=== PATIENT | male | born 1985 | race Native Hawaiian/Other Pacific Islander ===

== ENCOUNTER 2020-05-28 16:28 | Outpatient (REF) | payer OTHER, SELFPAY ==
--- NOTE | ~2020-05-28 | XR_ITS ---
EXAMINATION: XR CHEST CLINICAL INFORMATION: R07.9 - Chest pain, unspecified COMPARISON: None TECHNIQUE: 2 views of the chest were obtained. FINDINGS: The lungs are clear. There is no pneumothorax, pleural reaction, infiltrate, or effusion. The costophrenic sulci are clear. The heart is normal in size. The hilar and mediastinal contours are normal. No visible acute bony abnormality. XR/XR chest 2V IMPRESSION: Unremarkable examination.
== END 2020-05-28 16:29 | disposition home or self-care (01) ==
LOC: HO.HMGCX 16:28
PROVIDERS: PCP Internal Medicine; Visit Provider Nurse Practitioner Family
DX: R07.9 Chest pain, unspecified (principal)
CPT/HCPCS: 71046

== ENCOUNTER 2020-11-24 18:50 | Emergency (ER) | payer OTHER, SELFPAY ==
[2020-11-24 18:52] VITALS: BP 148/91; PULSE 81; RESP 17; TEMP 36.7; O2SAT 97; BMI 36.2
--- NOTE | 2020-11-24 20:46 | ED.BACK ---
HPI - Back Pain/Injury General Chief Complaint: Back Pain/Injury Stated Complaint: Back pain Time Seen by Provider: 11/24/20 20:25 Source: patient Mode of arrival: ambulatory History of Present Illness HPI Narrative: 35-year-old male with a past medical history of herniated disc and sciatica presenting to the ED complaining of acute on chronic sciatic pain radiating from right buttock down right lower extremity x1 week with associated right lower extremity tingling. Admits symptoms are similar to prior. Denies known injury/trauma or fall. Denies weakness, urinary incontinence/retention, numbness, fever, chills MD elicited complaint: back pain Related Data Previous Rx's Medication Instructions Recorded omeprazole 20 mg capsule,delayed 20 mg PO DAILY 7 Days #7 cap 05/28/20 release acetaminophen 500 mg tablet 500 mg PO Q6H PRN #20 tab 11/24/20 (Tylenol Extra Strength) cyclobenzaprine 5 mg tablet 5 mg PO Q8H PRN 5 Days #14 tab 11/24/20 lidocaine 5 % topical patch 1 patch TOPICAL DAILY PRN #30 ea 11/24/20 (Lidoderm) MDD remove after 12 hours naproxen 500 mg tablet 500 mg PO BID PRN 10 Days #20 tab 11/24/20 Allergies Allergy/AdvReac Type Severity Reaction Status Date / Time No Known Allergies Allergy Verified 11/24/20 18:52 Review of Systems Review of Systems: Constitutional: No Fever, No Chills ENT/Mouth: No Ear Pain, No Nasal Congestion, No sore throat Cardiovascular: No Chest Pain, No SOB Respiratory: No Cough Gastrointestinal: No Nausea, No Vomiting, No Abdominal pain Genitourinary: No Urinary Incontinence/retention Musculoskeletal: + joint pain, No Myalgias, No Joint Swelling Skin: No Skin Lesions, No rash Neuro: No Weakness, No Numbness, +Paresthesias Yes all other systems are reviewed and are negative Neurologic: Denies Sensory deficit (Neuro) [facility] Past Medical History Attestation statement: The following information was validated with the patient. Medical History (Updated 11/24/20 @ 20:49 by ROSARIO Flood) Disc herniation Sciatica Social History Social History Advance Directives: No Advance Directives Information Provided: No Physical Exam Vital Signs: Vital Signs: Last Vital Signs Temp 98.0 F 11/24/20 18:52 Pulse 81 11/24/20 18:52 Resp 17 11/24/20 18:52 BP 148/91 H 11/24/20 18:52 Pulse Ox 97 11/24/20 18:52 Body Mass Index 36.2 Const: General: cooperative and healthy appearing Orientation/consciousness: patient oriented x3 Limitations: no limitations HENMT: Head: Yes normal to inspection Ears: hearing grossly normal bilaterally General nose exam: Normal external nose present Face and sinus: Yes normal facial exam Eyes: General: appearance normal, both eyes and all related structures EOM: EOMs intact bilaterally Neck: Neck: Yes normal visual inspection Resp: Effort & Inspection: normal respiratory effort and no respiratory distress Cardio: Rate: regular rate Back/Spine/Pelvis: Other: No midline thoracic/lumbar spinous tenderness to palpation or step-off/deformity. + right-sided lumbar MSK/right-sided buttock tenderness to palpation. Skin: Rashes: no rashes Wounds: no wounds Neuro: Other: No saddle anesthesia, ambulating with steady gait, strength intact throughout General: patient oriented x3, gait normal, tone normal and moves all extremities Gait exam (Neuro): Normal gait present Motor exam (neuro): 5/5 motor strength present throughout Sensory Exam: No Sensory deficit (Neuro) Extrem: General: Yes normal to inspection MDM - Back Pain/Injury MDM Narrative Medical decision making narrative: 35-year-old male with a past medical history of herniated disc and sciatica presenting to the ED complaining of acute on chronic sciatic pain radiating from right buttock down right lower extremity x1 week with associated right lower extremity tingling. On exam VSS, NAD/well-appearing, physical exam as above, no red flag symptoms or midline spinous tenderness. Likely MSK pain and sciatica. Low concern for cauda equina/cord compression. Plan: Toradol/Lidoderm patch, PCP follow-up Discharge Plan Discharge Clinical Impression: Sciatica Qualifiers: Laterality: right Qualified Code(s): M54.31 - Sciatica, right side Patient Disposition: Home, Self-Care Instructions: Acute Low Back Pain (ED), Sciatica (ED) Additional Instructions: Your pain is likely musculoskeletal Flexeril is a muscle relaxer, take at night as it makes you drowsy, do not drive, drink alcohol, or operate machinery while taking it Naproxen as an anti-inflammatory / pain medication, take with food Lidoderm patches are numbing patches, apply to painful area In addition take Tylenol at home If symptoms persist or worsen, pain becomes unbearable, you developed urinary retention or incontinence, or weakness return to the ED Prescriptions: New acetaminophen [Tylenol Extra Strength] 500 mg tablet 500 mg PO Q6H PRN (Reason: pain or fever) Qty: 20 RF: 0 lidocaine [Lidoderm] 5 % adhesive patch,medicated 1 patch topical DAILY MDD remove after 12 hours PRN (Reason: pain) Qty: 30 RF: 0 naproxen 500 mg tablet 500 mg PO BID PRN (Reason: pain) 10 Days Qty: 20 RF: 0 cyclobenzaprine 5 mg tablet 5 mg PO Q8H PRN (Reason: pain (scale score 7-10)) 5 Days Qty: 14 RF: 0 No Action omeprazole 20 mg capsule,delayed release(DR/EC) 20 mg PO DAILY 7 Days Qty: 7 RF: 0 Referrals: Po,Perry Gonzalez MD [Primary Care Provider] - 5 days
[2020-11-24] MEDS: Ketorolac Tromethamine 15 MG/ML VIAL 30 MG IM (21:03)
[2020-11-24] MEDS: Lidocaine 4 % Patch ADH..PATCH 1 PATCH TRANSDERMA (21:04)
== END 2020-11-24 21:15 | disposition home or self-care (01) ==
PROVIDERS: Emergency Provider Internal Medicine; PCP Internal Medicine
DX: M54.31 Sciatica, right side (principal); Z79.899 Other long term (current) drug therapy
CPT/HCPCS: 96372; 99283; 99284; J1885

== ENCOUNTER 2021-04-03 13:52 | Outpatient (REF) | payer OTHER, SELFPAY ==
[2021-04-03 15:52] LABS: Binax Now Covid-19 Ag Positive (Negative)
[2021-04-03 15:53] LABS: Binax Internal Control QC Valid
== END 2021-04-03 13:53 | disposition home or self-care (01) ==
LOC: HO.LAB 13:52
PROVIDERS: Visit Provider Internal Medicine
DX: Z20.822 Contact with and (suspected) exposure to COVID-19 (principal)
CPT/HCPCS: 36415; C9803

== ENCOUNTER 2022-07-01 12:52 | Outpatient (REF) | payer OTHER, SELFPAY ==
--- NOTE | ~2022-07-01 | XR_ITS ---
EXAMINATION: XR LUMBOSACRAL SPINE WITH OBLIQUES CLINICAL INFORMATION: Sciatica right side. COMPARISON: None available. TECHNIQUE: AP, both oblique, and lateral views of the lumbar spine. Lateral view of the lumbosacral junction. FINDINGS: There is normal lumbar lordosis. The vertebral heights, alignment and disc heights are normal. No visible acute fracture, dislocation or subluxation seen. SI joints are symmetrical and normal. The paravertebral soft tissues are normal. XR/XR lumbar spine 4V min IMPRESSION: Unremarkable lumbar spine exam.
== END 2022-07-01 12:53 | disposition home or self-care (01) ==
LOC: HO.XRAY 12:52
PROVIDERS: PCP Internal Medicine; Visit Provider Physician Assistant
DX: M54.31 Sciatica, right side (principal)
CPT/HCPCS: 72110

== ENCOUNTER 2022-08-19 12:00 | Outpatient (RCR) | payer OTHER, SELFPAY ==
--- NOTE | 2022-07-28 10:55 | MHC.PT.EP ---
[facility] [place] Office [place] Office [place] Office [address] Ariadna Zavala [address] [phone] F: [phone] F: [phone] F: [phone] F: [phone] Physical Therapy Plan of Care Date of Evaluation: Date of Surgery: N/A Diagnosis: Unspecified thoracic, thoracolumbar and lumbosacral intervertebral disc disorder Assessment: Pt is a pleasant and motivated 37yo M who presents to PT with low back pain with intermittent radiating symptoms into RLE. Pt presents to PT with current impairments in pain, decreased lumbar ROM, posterior chain tightness, soft tissue restrictions, decreased core stabilization, decreased hip/glute strength, and impaired gait. He is limited functionally by prolonged sitting, bending, and transitional movements. He is an excellent candidate for skilled PT in order to address current impairments to facilitate return to PLOF. He is recommended to be seen 2x/week for 4 weeks and will be reassessed at that time. Frequency and Duration: The patient will be seen 2x/week for 4 weeks Short Term Goals: Pt will be I with HEP to promote self management of symptoms Pt will demonstrate improvements in postural awareness throughout the day Food Handler Goals: Pt will demonstrate full ROM all planes of lumbar spine to assist with ADLs Pt will tolerate prolonged sitting > 45 min with improved posture without pain or radicular symptoms Pt will demonstrate improvements in function as evidenced by statistically significant improvement in Modified Oswestry Low Back Pain Disability Questionnaire Treatment Plan: Modalities to reduce pain, spasms and effusion. Manual therapy to restore motion and function. Therapeutic exercise to improve strength and flexibility. Neuromuscular re-education for posture and balance. Therapeutic activities to return to functional activities of daily living. Electronically signed by: Naima Palomo, PT, DPT Please sign and return to therapist. Thank you for your referral.
--- NOTE | 2022-09-01 14:19 | MHC.PT.DC ---
[facility] [place] Office [place] Office [place] Office [address] Ariadna Zavala [address] [phone] F: [phone] F: [phone] F: [phone] F: [phone] Physical Therapy Discharge Report Diagnosis: Unspecified thoracic, thoracolumbar and lumbosacral intervertebral disc disorder Date of Surgery: N/A Date of Evaluation: 07/27/22 Date of Discharge: 09/01/22 Treatments to Date: 7 Cancellations to Date: 1 No Shows to Date: 2 Discharge Status: Visit Non-compliance Discharge Summary: Pt was seen for PT from 07/27/22-08/19/22. Pt has had 2 no show appointments since SOC including a no show for his last scheduled appointment. Pt is being D/C from skilled PT per [facility] attendance policy and visit non compliance. Pt current level of function unknown at this time. Electronically signed by: Naima Palomo, PT, DPT Please sign and return to therapist. Thank you for your referral.
== END 2022-09-01 14:19 | disposition home or self-care (01) ==
LOC: HO.PT 12:00
PROVIDERS: PCP Internal Medicine; Visit Provider Physician Assistant
DX: M51.9 Unspecified thoracic, thoracolumbar and lumbosacral intervertebral disc disorder (principal); M54.31 Sciatica, right side
CPT/HCPCS: 97110; 97112; 97140; 97162

== ENCOUNTER 2023-04-06 13:02 | Outpatient (AMB) | payer OTHER, SELFPAY ==
--- NOTE | 2023-04-06 13:15 | MHC.PC.OV ---
Vital Signs 04/06/23 13:16 04/06/23 13:36 Height 5 ft 5 in Weight 226 lb BMI 37.6 BP 140/86 H 132/70 Blood Pressure Location Lt brachial Lt brachial Position Sitting Sitting Pulse 79 Pulse Source Pulse Oximeter Pulse Oximetry (%) 99 Oxygen Delivery Method Room Air Intake Visit Reasons: Physical exam Allergies No Known Allergies Allergy (Verified 07/13/22 15:05) Medication List - Last Reconciled 04/06/23 by Perry Rodriguez MD blood pressure monitor (Blood Pressure Kit) As directed hydrochlorothiazide 25 mg PO DAILY multivitamin 1 tab PO DAILY Tobacco use date assessed: 04/06/23 Dental Screening Dental Screen Date: 04/06/23 Did you have a dental visit in the last 12 months?: No Did you have a dental problem in the last 6 months where you did not have access to dental care?: No HPI Physical exam HPI Details 37-year-old obese male smoker with hypertension coming in for physical exam last seen in 2020. Review of the chart June 2022 had back pain sent for physical therapy and was given prednisone. dizzy 2 weeks ago had covid 19 infection last year 02/2023- 3 weeks before abd pain takes cold drink- diarrhea am and evening. [facility] Medical History (Updated 04/06/23 @ 14:01 by Perry Rodriguez MD) Migraine Tobacco abuse Hypertension Obesity Disc herniation Sciatica Surgical History No pertinent past surgical history Social History (Updated 04/06/23 @ 13:40 by Perry Rodriguez MD) Housing: Apartment Alcohol intake: current Comment: 3 x a year- 2 glasses Patient Tobacco Use Status: Former Tobacco user Tobacco use type: Cigarette Years Smoked: 2020 e-Cigarette/Vaping Use: Never Used Second Hand Smoke Exposure: No service: No Current occupational status: employed Cognitive needs: No Hearing needs: No Vision needs: Yes (glasses) Questionnaire PHQ-9 Over the last 2 weeks, how often have you been bothered by any of the following problems? 1. Little interest or pleasure in doing things: not at all 2. Feeling down, depressed, or hopeless: several days 3. Trouble falling or staying asleep, or sleeping too much: several days 4. Feeling tired or having little energy: not at all 5. Poor appetite or overeating: several days 6. Feeling bad about yourself - or that you are a failure or have let yourself or your family down: not at all 7. Trouble concentrating on things, such as reading the newspaper or watching television: not at all 8. Moving or speaking so slowly that other people could have noticed. Or the opposite - being so fidgety or restless that you have been moving around a lot more than usual: not at all 9. Thoughts that you would be better off or of hurting yourself in some way: not at all Total score: 3 Depression Screening Interpretation: Positive Depression Screening Done: Yes Source: Developed by Drs. Tani Bernal, Ruby Grace, Ha Rahman and colleagues, with an educational vahid from [employer]. Thrive Questionnaire Date Thrive assessed: 04/06/23 I am a: Patient What is your living situation today?: I have a steady place to live Within the past 12 months, did the food you bought not last and you didn't have the money to get more?: Never true Within the past 12 months, did you worry whether your food would run out before you got money to buy more?: Never true Do you have trouble paying for medicines?: No Do you have trouble getting transportation to medical appointments?: No Do you have trouble paying your heating and electricity bill?: No Do you have trouble taking care of your child, family member or friend?: No Do you have trouble with day-to-day activities such as bathing, preparing meals, shopping, managing finances, etc.?: No Are you currently unemployed and looking for a job?: No Are you interested in more education?: No AUDIT C Alcohol Use Questionnaire (AUDIT-C) 1. How often do you have a drink containing alcohol?: Monthly or less 2. How many drinks containing alcohol do you have on a typical day when you are drinking?: 1 or 2 3. How often do you have six or more drinks on one occasion?: Never Total Score: 1 LALITHA-7 AMB Questionnaire LALITHA-7 Date LALITHA - 7 assessed: 04/06/23 Feeling nervous, anxious, or on edge: 0 = Not at all Not being able to stop or control worryin = Several days Worrying too much about different things: 0 = Not at all Trouble relaxin = Not at all Being so restless that it is hard to sit still: 1 = Several days Becoming easily annoyed or irritable: 1 = Several days Feeling afraid as if something awful might happen: 0 = Not at all Total LALITHA-7 score (0-4 normal; 5-9 mild; 10-14 moderate; 15-21 severe): 3 Source: Developed by Drs. Tani Bernal, Ruby Grace, Ha Rahman and colleagues, with an educational vahid from [employer]. Review of Systems Const Denies poor appetite and Denies weakness Eyes Denies no additional complaints ENT Reports Normal hearing present, Denies dizziness, Denies nasal congestion, Denies tinnitus and Denies sore throat Card Denies chest pain, Denies syncope, Denies rapid heart rate and Denies dyspnea Resp Denies cough and Denies dyspnea GI Denies change in stool character, Reports constipation, Denies diarrhea, Denies nausea and Denies vomiting Denies dysuria and Denies urinary frequency Neuro Reports Normal hearing present, Denies confusion, Denies dizziness, Denies syncope and Denies weakness Psych Denies confusion Physical exam (Primary Care) Vital Signs: Last Vital Signs Pulse 79 04/06/23 13:16 BP 132/70 04/06/23 13:36 Pulse Ox 99 04/06/23 13:16 Oxygen Delivery Method Room Air 04/06/23 13:16 BMI result Body Mass Index 37.6 Tobacco/Smoking Status: Tobacco use Status Tobacco use date assessed 04/06/23 04/06/23 13:21 Patient Tobacco Use Status Former Tobacco user 04/06/23 13:40 Tobacco use type Cigarette 04/06/23 13:40 e-Cigarette/Vaping Use Never Used 04/06/23 13:40 PHQ-9: PHQ-9 Score PHQ-9: Total score 3 04/06/23 13:28 Depression Screening Interpretation: Positive Thrive Assessment: Date of Thrive Assessment Date Thrive assessed 04/06/23 04/06/23 13:21 Const General: No confusion Orientation/consciousness: No confusion HENMT Head: Yes normocephalic Ears: external ears normal and TM's normal bilaterally Face and sinus: Yes normal facial exam Mouth: moist mucous membranes Throat: Yes tonsils normal Eyes Conjunctivae: conjunctivae normal Pupils: Equal, round and reactive pupils present and Pupil accommodation reflex normal Direct Ophthalmoscopy: normal light reflex Neck Neck: No lymphadenopathy Thyroid: Thyroid normal Chest Chest palpation & inspection: normal inspection of the chest Resp Effort & Inspection: normal respiratory effort and no audible wheezes Auscultation: clear to auscultation bilaterally Cardio Rate: regular rate Rhythm: regular rhythm Peripheral pulses: radial pulses present and dorsalis pedis present GI Other: visual negative Inspection: Yes normal to inspection Palpation (GI): no masses Auscultation: normal bowel sounds and normoactive bowel sounds Male General Exam: Yes normal external exam Skin General skin exam: no rashes or lesions noted Rashes: no rashes Neuro General: No confusion Cranial nerves: Yes Equal, round and reactive pupils present and Yes Normal hearing present Cognition (Neuro): normal cognition Gait exam (Neuro): Normal gait present Motor exam (neuro): 5/5 motor strength present throughout Deep tendon reflexes (DTR's): Right brachioradialis reflex intensity grade: 2+, Left brachioradialis reflex intensity grade: 2+, Right patellar reflex intensity grade: 2+ and Left patellar reflex intensity grade: 2+ Extrem General: Yes normal to inspection and No edema Immunizations Boostrix Tdap 2.5 Lf unit-8 mcg-5 Lf/0.5 mL intramuscular syringe Performing Provider: Perry Rodriguez MD Performing Location: [facility] Administered by: JACQUELYN Gomez on 04/06/23 14:08 Dose Route Admin Location Dispensed Lot Number Expiration Date NDC Food Editor 0.5 mL IM Left Deltoid 0.5 mL [id number] 07/22/25 [id number] [employer] VIS Given Date VIS Provided VIS Publication Date 04/06/23 Single Vaccine 20 Eligibility Eligibility Date Funding Source Not [facility] Eligible 04/06/23 Private Assessment and Plan Assessment & Plan (1) Annual physical exam: Code(s): Z00.00 - Encounter for general adult medical examination without abnormal findings (2) Hypertension: Code(s): I10 - Essential (primary) hypertension Qualifiers: Hypertension type: primary hypertension Qualified Code(s): I10 - Essential (primary) hypertension Plan: Continue with blood pressure medication. Decrease salt intake and exercise presently on hydrochlorothiazide 25 mg once a day (3) Obesity: Code(s): E66.9 - Obesity, unspecified Qualifiers: Body mass index: BMI 34.0-34.9 Obesity classification: adult class 1 (BMI 30 - 34.9) Obesity type: due to excess calories Serious obesity comorbidity presence: without serious comorbidity Qualified Code(s): E66.09 - Other obesity due to excess calories; Z68.34 - Body mass index [BMI] 34.0-34.9, adult Plan: Diet and exercise (4) Mass of anus: Code(s): K62.89 - Other specified diseases of anus and rectum Plan: most oftern hemorrhoids but if persist call and referral to GI. avoid getting constipated Orders: Orders Complete Blood Count Auto Diff Today I10 - Essential (primary) hypertension Comprehensive Met. Panel Today I10 - Essential (primary) hypertension Thyroid Stimulating Hormone Today I10 - Essential (primary) hypertension TDaP Immunization Today Z23 - Encounter for immunization Free T4 (Free Thyroxine) Today I10 - Essential (primary) hypertension Vitamin B12 and Folate Today I10 - Essential (primary) hypertension Lipid Panel Today E78.00 - Pure hypercholesterolemia, unspecified, I10 - Essential (primary) hypertension Medications: New ciclopirox 8% (Ciclodan) 1 appl topical BEDTIME 4 weeks 6.6 mL 1RF B35.1 - Tinea unguium blood pressure monitor (Blood Pressure Kit) As directed 1 ea 0RF I10 - Essential (primary) hypertension Refilled hydrochlorothiazide 25 mg PO DAILY 90 tabs 3RF I10 - Essential (primary) hypertension Coding Level of Care Code Est Pt Prev Care [id number]) Diagnoses Annual physical exam Z00.00 Primary hypertension I10 Hypertension type: primary hypertension Class 1 obesity due to excess calories without serious comorbidity with body mass index (BMI) of 34.0 to 34.9 in adult E66.09; Z68.34 Body mass index: BMI 34.0-34.9 Obesity classification: adult class 1 (BMI 30 - 34.9) Obesity type: due to excess calories Serious obesity comorbidity presence: without serious comorbidity Mass of anus K62.89
[2023-04-06 13:16] VITALS: BP 140/86; PULSE 79; O2SAT 99; BMI 37.6
[2023-04-06 13:36] VITALS: BP 132/70
== END 2023-04-06 14:15 | disposition home or self-care (01) ==
PROVIDERS: PCP Internal Medicine; Visit Provider Internal Medicine
DX: Z00.00 Encounter for general adult medical examination without abnormal findings (principal); I10 Essential (primary) hypertension; E66.09 Other obesity due to excess calories; Z23 Encounter for immunization; Z68.34 Body mass index [BMI] 34.0-34.9, adult; K62.89 Other specified diseases of anus and rectum
CPT/HCPCS: 90471; 90715; 99395

== ENCOUNTER 2024-04-10 12:39 | Outpatient (AMB) | payer OTHER, SELFPAY ==
[2024-04-10 12:40] VITALS: BP 148/96; PULSE 95; O2SAT 95; BMI 34.3
--- NOTE | 2024-04-10 12:40 | A.OFFPC_ITS ---
Vital Signs 04/10/24 12:40 04/10/24 12:50 Height 5 ft 5 in Weight 206 lb 4 oz BMI 34.3 BP 148/96 H 142/80 H Blood Pressure Location Lt brachial Lt brachial Position Sitting Sitting Pulse 95 Pulse Source Pulse Oximeter Pulse Oximetry (%) 95 Oxygen Delivery Method Room Air Intake Visit Reasons: Annual exam Allergies No Known Allergies Allergy (Verified 04/10/24 12:43) Medication List - Last Reconciled 04/10/24 by Perry Rodriguez MD blood pressure monitor (Blood Pressure Kit) As directed hydrochlorothiazide 25 mg PO DAILY Tobacco use date assessed: 04/10/24 Dental Screening Dental Screen Date: 04/10/24 Did you have a dental visit in the last 12 months?: No Did you have a dental problem in the last 6 months where you did not have access to dental care?: No Was dental information given to patient?: Patient has dentist HPI Annual exam HPI Details The patient is a 38-year-old male presenting with blood pressure management issues. The patient reports inconsistent monitoring of blood pressure due to a lack of a home blood pressure monitor. He recalled previous episodes of elevated blood pressure resulting in epistaxis a few years ago, which necessitated medical attention. The patient has not adhered to his prescribed medication, hydrochlorothiazide, for the past 4 weeks. He expressed a need for a machine to monitor his blood pressure at home and acknowledged that he experie nces anxiety, which may contribute to elevated readings in a clinical setting. The patient noted improvement in his condition when at home but lacks documented evidence of this due to inadequate monitoring. He was given guidance regarding the importance of managing blood pressure to prevent heart enlargement, myocardial infarction, and cerebrovascular accidents. - Discussion on the importance of loweri ng salt intake to manage hypertension. - Prescription for a home blood pressure monitor to allow regular monitoring outside the clinical environment. - Advice regarding regular physical acti vity and healthy diet to manage weight and overall cardiovascular health. - Counseling on recreational cannabis us e and its potential cardiopulmonary risks. - Documentation of recent flu vaccinatio n received at work. - Employs relaxation techniques with occ asional use of marijuana for anxiety management. - Drinks alcohol two to three times rhianna hly, preferring wine or wine coolers. - Lives alone and manages his meals inde pendently, reporting fluctuation in dietary habits leading to nausea if meal patterns are irregular. - Cardiovascular: Reports intermittent e pisodes of dizziness dependent on dietary intake. - Respiratory: Denies shortness of breat h; rare nocturnal dyspnea reported previously. - Gastrointestinal: Reports nausea in th e mornings if skipping breakfast. - Neurological: Occasionally feels tired after certain meals but denies persistent fatigue. - EENT: Reports vision issues with broke n glasses; maintains familiarity with corrective lens use. - Reinstate and monitor usage of hydroch lorothiazide for management of hypertension. - Enroll in home monitoring of blood pre ssure with a prescribed device; evaluate readings frequently. - Provide patient education on the signi ficance of diet and lifestyle in blood pressure control. - Plan for follow-up in 3 months, with d etailed logs of home-monitored blood pressure. PFSH Medical History Migraine Tobacco abuse Hypertension Obesity Disc herniation Sciatica Surgical History No pertinent past surgical history Social History (Updated 04/10/24 @ 12:54 by Perry Rodriguez MD) Housing: Apartment Alcohol intake: current Comment: 3 x a month 2 glasses Patient Tobacco Use Status: Former Tobacco user Tobacco use type: Cigarette Years Smoked: 2020 e-Cigarette/Vaping Use: Never Used Second Hand Smoke Exposure: No service: No Current occupational status: employed Cognitive needs: No Hearing needs: No Vision needs: Yes (glasses) Questionnaire PHQ-9 Over the last 2 weeks, how often have you been bothered by any of the following problems? 1. Little interest or pleasure in doing things: several days 2. Feeling down, depressed, or hopeless: several days 3. Trouble falling or staying asleep, or sleeping too much: several days 4. Feeling tired or having little energy: several days 5. Poor appetite or overeating: not at all 6. Feeling bad about yourself - or that you are a failure or have let yourself or your family down: not at all 7. Trouble concentrating on things, such as reading the newspaper or watching television: several days 8. Moving or speaking so slowly that other people could have noticed. Or the opposite - being so fidgety or restless that you have been moving around a lot more than usual: not at all 9. Thoughts that you would be better off or of hurting yourself in some way: not at all Total score: 5 Depression Screening Interpretation: Positive Depression Screening Done: Yes 40159 - PHQ-9 Billing: Yes Source: Developed by Drs. Tani Bernal, Ruby Grace, Ha Rahman and colleagues, with an educational vahid from [email or web address] Thrive Questionnaire Date Thrive assessed: 04/10/24 I am a: Patient What is your living situation today?: I have a steady place to live Within the past 12 months, did the food you bought not last and you didn't have the money to get more?: Never true Within the past 12 months, did you worry whether your food would run out before you got money to buy more?: Never true Do you have trouble paying for medicines?: No Do you have trouble getting transportation to medical appointments?: No Do you have trouble paying your heating and electricity bill?: No Do you have trouble taking care of your child, family member or friend?: No Do you have trouble with day-to-day activities such as bathing, preparing meals, shopping, managing finances, etc.?: No Are you currently unemployed and looking for a job?: No Are you interested in more education?: No THRIVE Score: 0 AUDIT C Alcohol Use Questionnaire (AUDIT-C) 1. How often do you have a drink containing alcohol?: Monthly or less 2. How many drinks containing alcohol do you have on a typical day when you are drinking?: 1 or 2 3. How often do you have six or more drinks on one occasion?: Never Total Score: 1 Score Reviewed/Action Taken: Yes LALITHA-7 AMB Questionnaire LALITHA-7 Date LALITHA - 7 assessed: 04/10/24 Feeling nervous, anxious, or on edge: 0 = Not at all Not being able to stop or control worryin = Not at all Worrying too much about different things: 1 = Several days Trouble relaxin = Several days Being so restless that it is hard to sit still: 0 = Not at all Becoming easily annoyed or irritable: 1 = Several days Feeling afraid as if something awful might happen: 0 = Not at all Total LALITHA-7 score (0-4 normal; 5-9 mild; 10-14 moderate; 15-21 severe): 3 Source: Developed by Drs. Tani Bernal, Ruby Grace, Ha Rahman and colleagues, with an educational vahid from [email or web address] LALITHA-7 Assessment Billing LALITHA-7 Assessment Tool: LALITHA-7 Assessment 80427 Review of Systems Const Denies poor appetite and Denies weakness Eyes Denies no additional complaints ENT Reports Normal hearing present, Denies dizziness, Denies nasal congestion, Denies tinnitus and Denies sore throat Card Denies chest pain, Denies syncope, Denies rapid heart rate and Denies dyspnea Resp Denies cough and Denies dyspnea GI Denies change in stool character, Reports constipation, Denies diarrhea, Denies nausea and Denies vomiting Denies dysuria and Denies urinary frequency Neuro Reports Normal hearing present, Denies confusion, Denies dizziness, Denies syncope and Denies weakness Psych Denies confusion Physical exam (Primary Care) Vital Signs: Last Vital Signs Pulse 95 04/10/24 12:40 BP 148/96 H 04/10/24 12:40 Pulse Ox 95 04/10/24 12:40 Oxygen Delivery Method Room Air 04/10/24 12:40 BMI result Body Mass Index 34.3 Tobacco/Smoking Status: Tobacco use Status Tobacco use date assessed 04/06/23 04/06/23 13:21 Patient Tobacco Use Status Former Tobacco user 04/06/23 13:40 Tobacco use type Cigarette 04/06/23 13:40 e-Cigarette/Vaping Use Never Used 04/06/23 13:40 Depression Screening Interpretation: Positive Thrive Assessment: Date of Thrive Assessment Date Thrive assessed 04/06/23 04/06/23 13:21 Const General: No confusion Orientation/consciousness: No confusion HENMT Head: Yes normocephalic Ears: external ears normal and TM's normal bilaterally Face and sinus: Yes normal facial exam Mouth: moist mucous membranes Throat: Yes tonsils normal Eyes Conjunctivae: conjunctivae normal Pupils: Equal, round and reactive pupils present and Pupil accommodation reflex normal Direct Ophthalmoscopy: normal light reflex Neck Neck: No lymphadenopathy Thyroid: Thyroid normal Chest Chest palpation & inspection: normal inspection of the chest Resp Effort & Inspection: normal respiratory effort and no audible wheezes Auscultation: clear to auscultation bilaterally, no crackles, no wheezes and lung sounds not diminished Cardio Rate: regular rate Rhythm: regular rhythm Peripheral pulses: radial pulses present and dorsalis pedis present GI Other: visual negative rectal Palpation (GI): no masses Auscultation: normal bowel sounds and normoactive bowel sounds Rectal Exam - Male: Yes deferred Male General Exam: Yes normal external exam Skin General skin exam: no rashes or lesions noted Rashes: no rashes Neuro General: No confusion Cranial nerves: Yes Equal, round and reactive pupils present and Yes Normal hearing present Cognition (Neuro): normal cognition Gait exam (Neuro): Normal gait present Motor exam (neuro): 5/5 motor strength present throughout Deep tendon reflexes (DTR's): Right brachioradialis reflex intensity grade: 2+, Left brachioradialis reflex intensity grade: 2+, Right patellar reflex intensity grade: 2+ and Left patellar reflex intensity grade: 2+ Extrem General: No edema Coding Level of Care Code Est Pt Prev Care 18-39y(88954) Diagnoses Annual physical exam Z00.00 Class 1 obesity due to excess calories without serious comorbidity with body mass index (BMI) of 34.0 to 34.9 in adult E66.09; Z68.34 Body mass index: BMI 34.0-34.9 Obesity classification: adult class 1 (BMI 30 - 34.9) Obesity type: due to excess calories Serious obesity comorbidity presence: without serious comorbidity Primary hypertension I10 Hypertension type: primary hypertension Hypersomnia G47.10 Additional Codes PHQ-9 - 11331 - PHQ-9 Billing: Yes ([id number]) LALITHA-7 Assessment Billing - LALITHA-7 Assessment Tool: LALITHA-7 Assessment [id number] ([id number]) Assessment & Plan Assessment & Plan (1) Annual physical exam: Code(s): Z00.00 - Encounter for general adult medical examination without abnormal findings Category: Medical (2) Obesity: Code(s): E66.9 - Obesity, unspecified Category: Medical Qualifiers: Body mass index: BMI 34.0-34.9 Obesity classification: adult class 1 (BMI 30 - 34.9) Obesity type: due to excess calories Serious obesity c omorbidity presence: without serious comorbidity Qualified Code(s): E66.09 - Other obesity due to excess calories; Z68.34 - Body mass index [BMI] 34.0-34.9, adult (3) Hypertension: Code(s): I10 - Essential (primary) hypertension Category: Medical Qualifiers: Hypertension type: primary hypertension Qualified Code(s): I10 - Essential (primary) hypertension (4) Hypersomnia: Code(s): G47.10 - Hypersomnia, unspecified Category: Medical Plan - Reinstate and monitor usage of hydrochlorothiazide for management of hypertension. - Enroll in home monitoring of blood pressure with a prescribed device; evaluate readings frequently. - Provide patient education on the significance of diet and lifestyle in blood pressure control. - Plan for follow-up in 3 months, with detailed logs of home-monitored blood pressure. During our discussion, I emphasized the importance of proper blood pressure management. The patient was informed about the need to consistently take prescribed antihypertensive medication and to use a home blood pressure monitor to track readings regularly. I highlighted the potential health risks associated with uncontrolled hypertension, such as hypertrophy of the heart, myocardial infarction, and cerebrovascular accidents. Additionally, I discussed the implications of recreational cannabis use concerning cardiovascular health, advising a preference for oral forms if consumption continues. We talked about the benefits of leading a healthy lifestyle, including salt reduction and weight management, for overall cardiovascular risk reduction. The patient agreed to a follow-up on progress in 3 months after adhering to the management plan, including monitoring at home, diet adjustments, and reinitiation of medication. - Restart and adhere to your hydrochlorothiazide medication as prescribed. - Obtain and use a home blood pressure monitor regularly; log your readings. - Reduce salt intake in your diet to help control blood pressure. - Avoid smoking and limit recreational cannabis use; consider non-smoking alternatives. - Engage in regular physical activity and maintain a healthy diet. - Schedule a follow-up appointment in 3 months to review blood pressure logs and medication effectiveness. - Seek immediate medical care if you experience any symptoms like severe dizziness, chest pain, or sudden shortness of breath. Orders: Orders RT home sleep study Today G47.10 - Hypersomnia, unspecified Comprehensive Met. Panel Today G47.10 - Hypersomnia, unspecified Free T4 (Free Thyroxine) Today G47.10 - Hypersomnia, unspecified Lipid Panel Today E78.00 - Pure hypercholesterolemia, unspecified, G47.10 - Hypersomnia, unspecified Vitamin B12 and Folate Today G47.10 - Hypersomnia, unspecified Complete Blood Count Auto Diff Today G47.10 - Hypersomnia, unspecified Thyroid Stimulating Hormone Today G47.10 - Hypersomnia, unspecified Hemoglobin A1c Today G47.10 - Hypersomnia, unspecified Medications: Refilled hydrochlorothiazide 25 mg PO DAILY 90 tabs 3RF I10 - Essential (primary) hypertension blood pressure monitor (Blood Pressure Kit) As directed 1 ea 0RF I10 - Essential (primary) hypertension
[2024-04-10 12:50] VITALS: BP 142/80
== END 2024-04-10 13:15 | disposition home or self-care (01) ==
PROVIDERS: PCP Internal Medicine; Visit Provider Internal Medicine
DX: Z00.00 Encounter for general adult medical examination without abnormal findings (principal); E66.09 Other obesity due to excess calories; Z68.34 Body mass index [BMI] 34.0-34.9, adult; I10 Essential (primary) hypertension; G47.10 Hypersomnia, unspecified

== ENCOUNTER → 2024-04-10 12:39 | Outpatient (BNVA) | payer OTHER, SELFPAY | PROVIDERS: PCP Internal Medicine; Visit Provider Internal Medicine | DX: Z00.00 Encounter for general adult medical examination without abnormal findings (principal); E66.09 Other obesity due to excess calories; Z68.34 Body mass index [BMI] 34.0-34.9, adult; I10 Essential (primary) hypertension; G47.10 Hypersomnia, unspecified | CPT/HCPCS: 96127 ==

== ENCOUNTER 2025-01-04 09:10 | Outpatient (AMB) | payer OTHER, SELFPAY ==
--- NOTE | 2025-01-04 09:21 | A.OFFPC_ITS ---
Vital Signs 01/04/25 09:22 Height 5 ft 5 in Weight 203 lb 6 oz BMI 33.8 BP 156/90 H Blood Pressure Location Lt brachial Position Sitting Pulse 59 Pulse Source Pulse Oximeter Temp 97.3 F Temp Source Temporal Artery Scan Pulse Oximetry (%) 98 Oxygen Delivery Method Room Air Intake Visit Reasons: discuss fmla paperwork/ depression medication Intake Note: Patient is here to follow up on FMLA paperwork, Depression medication. Manager Storage Required: No [employer] Brakes: Not Required per policy Accompanied by: Self / Same As Patient Allergies No Known Allergies Allergy (Verified 01/04/25 09:22) Medication List - Last Reconciled 01/04/25 by Perry Rodriguez MD blood pressure monitor (Blood Pressure Kit) As directed hydrochlorothiazide 25 mg PO DAILY sertraline 25 mg PO DAILY Tobacco use date assessed: 01/04/25 Dental Screening Dental Screen Date: 04/10/24 HPI discuss fmla paperwork/ depression medication HPI Details Review of the notes in 2020 did go to [facility] which was diagnosis having radicular low back pain but was treated conservatively with gabapentin patient did follow-up few times with the urgent center in 2022 for the back pain and has been given ketorolac. Otherwise no other notes seen. An x-ray was done in 2022 revealing :There is normal lumbar lordosis. The vertebral heights, alignment and disc heights are normal. No visible acute fracture, dislocation or subluxation seen. SI joints are symmetrical and normal. The paravertebral soft tissues are normal. Probelm with anxiety and depresion seeing therapist and was advised 3 free visits but they do not accept insurance. PRoblem with family, work. 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 not eating right and no really keeping self with bathing [facility] Medical History Migraine Tobacco abuse Hypertension Obesity Disc herniation Sciatica Surgical History No pertinent past surgical history Family History (Updated 01/04/25 @ 09:27 by JACQUELYN Ga) Other Mental health disorder Social History (Updated 01/04/25 @ 09:27 by JACQUELYN Ga) Housing: Apartment Alcohol intake: current Alcohol intake frequency: a few times a month Comment: 3 x a month 2 glasses Patient Tobacco Use Status: Former Tobacco user Tobacco use type: Cigarette Years Smoked: 2020 e-Cigarette/Vaping Use: Never Used Second Hand Smoke Exposure: Yes service: No Current occupational status: employed Cognitive needs: No Hearing needs: No Vision needs: Yes (glasses) Questionnaire PHQ-9 Over the last 2 weeks, how often have you been bothered by any of the following problems? 1. Little interest or pleasure in doing things: nearly every day 2. Feeling down, depressed, or hopeless: more than half the days 3. Trouble falling or staying asleep, or sleeping too much: nearly every day 4. Feeling tired or having little energy: nearly every day 5. Poor appetite or overeating: nearly every day 6. Feeling bad about yourself - or that you are a failure or have let yourself or your family down: nearly every day 7. Trouble concentrating on things, such as reading the newspaper or watching television: nearly every day 8. Moving or speaking so slowly that other people could have noticed. Or the opposite - being so fidgety or restless that you have been moving around a lot more than usual: nearly every day 9. Thoughts that you would be better off or of hurting yourself in some way : nearly every day Total score: 26 Depression Screening Interpretation: Positive Depression Screening Done: Yes Source: Developed by Drs. Tani Bernal, Ruby Grace, Ha Rahman and colleagues, with an educational vahid from [employer]. Thrive Questionnaire Date Thrive assessed: 04/10/24 LALITHA-7 AMB Questionnaire LALITHA-7 Date LALITHA - 7 assessed: 01/04/25 Feeling nervous, anxious, or on edge: 3 = Nearly every day Not being able to stop or control worryin = Nearly every day Worrying too much about different things: 3 = Nearly every day Trouble relaxin = More than half the days Being so restless that it is hard to sit still: 3 = Nearly every day Becoming easily annoyed or irritable: 3 = Nearly every day Feeling afraid as if something awful might happen: 3 = Nearly every day Total LALITHA-7 score (0-4 normal; 5-9 mild; 10-14 moderate; 15-21 severe): 20 Source: Developed by Drs. Tani Bernal, Ruby Grace, Ha Rahman and colleagues, with an educational vahid from [employer]. Physical exam (Primary Care) Vital Signs: Last Vital Signs Temp 97.3 F 01/04/25 09:22 Pulse 59 01/04/25 09:22 BP 156/90 H 01/04/25 09:22 Pulse Ox 98 01/04/25 09:22 Oxygen Delivery Method Room Air 01/04/25 09:22 BMI result Body Mass Index 33.8 Tobacco/Smoking Status: Tobacco use Status Tobacco use date assessed 01/04/25 01/04/25 09:24 Patient Tobacco Use Status Former Tobacco user 01/04/25 09:27 Tobacco use type Cigarette 01/04/25 09:27 e-Cigarette/Vaping Use Never Used 01/04/25 09:27 PHQ-9: PHQ-9 Score PHQ-9: Total score 26 01/04/25 09:31 Depression Screening Interpretation: Positive Thrive Assessment: Date of Thrive Assessment Date Thrive assessed 04/10/24 01/04/25 09:24 Const General: alert; No acute distress Eyes Conjunctivae: conjunctivae normal Resp Auscultation: clear to auscultation bilaterally Cardio Rate: regular rate Rhythm: regular rhythm GI Inspection: Yes normal to inspection Extrem General: Yes normal to inspection and No edema Coding Level of Care Code Est Pt Level 4 (60850) Diagnoses Obesity (BMI 30-39.9) E66.9 Primary hypertension I10 Hypertension type: primary hypertension Generalized anxiety disorder F41.1 Assessment & Plan Assessment & Plan (1) Obesity (BMI 30-39.9): Code(s): E66.9 - Obesity, unspecified Category: Medical Plan: Diet and exercise (2) Hypertension: Code(s): I10 - Essential (primary) hypertension Category: Medical Qualifiers: Hypertension type: primary hypertension Qualified Code(s): I10 - Essential (primary) hypertension Plan: Continue with blood pressure medication. Decrease salt intake and exercise (3) Generalized anxiety disorder: Code(s): F41.1 - Generalized anxiety disorder Category: Medical Plan: Patient is going through employee assistance to counseling and therapy. Plan History of Present Illness The patient is a 39-year-old male presenting with depression and hypertension management. The patient has a history of hypertension, which was last reviewed in March 2024. He reports adherence to antihypertensive medication, although he is running low on his current prescription. His last blood work in 2018 showed normal results except for a low vitamin D level. The patient also reports experiencing symptoms of depression, including lack of motivation, poor self-care, and overwhelming stress related to personal and work situations. He has been meeting with a therapist for about a month but faces insurance issues limiting further sessions. He denies any active suicidal ideation but acknowledges thoughts of self-harm without intent to act. The patient has a history of radicular low back pain, diagnosed in 2020 and managed conservatively with gabapentin and ketorolac. He followed up with an urgent care center in 2022 for exacerbations of back pain. Health Maintenance - Vitamin D supplementation recommended due to deficiency - Encouraged to maintain a healthy diet and exercise regimen for weight management Social History - Employment: Works in case management for behavioral health issues - Family: Experiencing stress related to marriage and family dynamics - Exercise: Discussed as part of weight management Review of Systems - Psychiatric: Reports depression, lack of motivation, and stress. Denies active suicidal ideation but acknowledges passive thoughts of self-harm. - Musculoskeletal: Reports history of radicular low back pain. Physical Exam Results - Labs: Normal blood count, electrolytes, liver function, cholesterol, B12, low vitamin D, normal thyroid (2019) Plan Patient was informed and verbally consented to the use of an ambient scribe for clinic note documentation during this visit. 1. Essential Hypertension The patient will continue with his current antihypertensive medication regimen, and a refill has been provided due to low supply. Regular monitoring of blood pressure is advised to ensure control. 2. Major Depressive Disorder The patient has been started on sertraline at a low dose to manage depressive symptoms. He is encouraged to continue therapy sessions, and a referral for counseling may be considered if insurance issues persist. 3. Radicular Low Back Pain The patient is advised to continue conservative management with medications like gabapentin and ketorolac as needed for pain control. Follow-up with a specialist may be considered if symptoms persist or worsen. 4. Vitamin D Deficiency Vitamin D supplementation is recommended to address the deficiency noted in previous lab results. Discussion Notes I discussed with the patient the initiation of sertraline for depression, emphasizing that it is not a quick fix and counseling remains crucial. We also reviewed the importance of continuing antihypertensive medication and the need for regular blood pressure monitoring. The patient was informed about the benefits of vitamin D supplementation and encouraged to maintain a healthy lifestyle to manage obesity. Patient Instructions - Continue taking antihypertensive medication as prescribed and monitor blood pressure regularly. - Start sertraline as directed and report any side effects. - Follow up with therapy sessions and explore counseling options if insurance issues persist. - Take vitamin D supplements as recommended. - Maintain a balanced diet and regular exercise to manage weight. Medications: New sertraline 25 mg PO DAILY 30 tabs 2RF F41.1 - Generalized anxiety disorder Refilled hydrochlorothiazide 25 mg PO DAILY 90 tabs 3RF I10 - Essential (primary) hypertension
[2025-01-04 09:22] VITALS: BP 156/90; PULSE 59; TEMP 36.3; O2SAT 98; BMI 33.8
== END 2025-01-04 09:55 | disposition home or self-care (01) ==
LOC: HO.HMCH 09:12
PROVIDERS: PCP Internal Medicine; Visit Provider Internal Medicine
DX: I10 Essential (primary) hypertension (principal); E66.9 Obesity, unspecified; Z68.33 Body mass index [BMI] 33.0-33.9, adult; F41.1 Generalized anxiety disorder